=== PATIENT | female | born 1995 | race Caucasian/White ===

== ENCOUNTER 2021-09-24 12:28 | Emergency (ER) | payer OTHER, SELFPAY ==
--- NOTE | 2021-09-24 | ECG_ITS ---
Test Reason : cp Blood Pressure : / mmHG Vent. Rate : 091 BPM Atrial Rate : 091 BPM P-R Int : 118 ms QRS Dur : 086 ms QT Int : 336 ms P-R-T Axes : 067 080 044 degrees QTc Int : 413 ms Normal sinus rhythm Normal ECG No previous ECGs available Referred By: Generic ED Physician Electronically Signed By:JENNY LANE
--- NOTE | ~2021-09-24 | XR_ITS ---
EXAMINATION: XR CHEST CLINICAL INFORMATION: SOB, cough and weakness COMPARISON: None TECHNIQUE: 2 views of the chest were obtained. FINDINGS: No significant abnormality is noted involving the heart, lungs, mediastinum, bony thorax or soft tissues. XR/XR chest 2V IMPRESSION: Unremarkable chest examination.
[2021-09-24 12:33] VITALS: BP 107/67; PULSE 90; RESP 16; TEMP 37.3; O2SAT 98; BMI 21.6
[2021-09-24 13:11] LABS: COVID-19 Test Negative (Negative); IDNOW Serial# 16C4AD1C
== END 2021-09-24 19:00 | disposition left against medical advice (07) ==
PROVIDERS: Emergency Provider Emergency Medicine
DX: R06.02 Shortness of breath (principal); R07.9 Chest pain, unspecified; Z20.822 Contact with and (suspected) exposure to COVID-19
CPT/HCPCS: 71046; 87635; 93005; 99282; 99283

== ENCOUNTER 2023-01-15 11:44 | Emergency (ER) | payer OTHER, SELFPAY ==
--- NOTE | ~2023-01-15 | US_ITS ---
EXAMINATION: US OBSTETRICAL ULTRASOUND CLINICAL INFORMATION: Positive test, abdominal pain HCG 246 COMPARISON: None available. LMP: 12/11/2022. Gestational age by maternal dates is 5 weeks 0 days. Estimated date of delivery by maternal dates is 09/17/2023. TECHNIQUE: Transabdominal and transvaginal imaging were performed. FINDINGS: There is no intrauterine gestational sac. Based on the patient's hCG, it is too early to identify an intrauterine by ultrasound. The uterus measures 6.7 x 3.2 x 5.7 cm. There is a question whether the uterus is septate versus bicornuate. The endometrium measures 1.5 cm which is upper limits of normal. ADNEXA: The right ovary measures 2.9 x 1.7 x 1.4 cm. The right ovary is normal in appearance. The left ovary measures 3.2 x 1.9 x 2.3 cm. 1.4 x 1.3 x 1.6 cm complex cyst in the left ovary which may represent the corpus luteum. There is a small amount of free fluid within the cul-de-sac. US/US OB pelvic and transvaginal IMPRESSION: There is no evidence of an intrauterine . No adnexal mass is seen. Based on the patient's hCG, it is too early to identify an intrauterine by ultrasound.
[2023-01-15 12:23] VITALS: BP 106/63; PULSE 81; RESP 18; TEMP 37.2; O2SAT 99; BMI 21.3
--- NOTE | 2023-01-15 12:23 | ED.PREGNANCY ---
HPI - General Chief complaint: Abdominal Pain Stated complaint: sharp abd pain Related Data Allergies Allergy/AdvReac Type Severity Reaction Status Date / Time No Known Allergies Allergy Verified 09/24/21 12:32 [No Known Allergies*] [facility] Social History Social History Advance Directives: No Physical Exam Vital Signs: Vital Signs: Last Vital Signs Temp 98.9 F 01/15/23 12:23 Pulse 81 01/15/23 12:23 Resp 18 01/15/23 12:23 BP 106/63 01/15/23 12:23 Pulse Ox 99 01/15/23 12:23 O2 Del Method Room Air 01/15/23 12:23 BMI result Body Mass Index 21.3 Course Course Course Narrative: RME: 27yo F w/PMHx + test on Thursday c/o abdominal pain x3 days w/nausea, decreased PO intake, & clear vaginal d/c. LMP 12/11. Labs, UA, OB US ordered Full HPI, ROS and PE to be performed by primary ED provider. Medical Decision Making Lab Data 01/15/23 12:58 01/15/23 12:58 Labs: Lab Results 01/15/23 Range/Units 12:58 WBC 9.5 (4.8-10.8) X10*3/uL RBC 4.09 L (4.20-5.50) X10*6/uL Hgb 12.8 (12.0-16.0) g/dl Hct 37.6 (37.0-47.0) % MCV 91.9 (80.0-98.0) fL MCH 31.3 (27.0-33.0) pg MCHC 34.0 (31.0-35.0) g/dl RDW 12.3 (11.0-16.0) % Plt Count 259 (160-400) X10*3/uL MPV 10.1 (9.4-12.3) fL Immature Gran % (Auto) 0.1 (0.0-0.4) % Neut % (Auto) 73.5 H (45-73) % Lymph % (Auto) 19.9 L (20-40) % [place] % (Auto) 6.0 (2-11) % Eos % (Auto) 0.2 (0-4) % Baso % (Auto) 0.3 (0-2) % Lymph # (Auto) 1.9 (1.2-4.9) X10*3/uL [place] # (Auto) 0.6 (0.1-1.2) X10*3/uL Eos # (Auto) 0.0 (0.0-0.4) X10*3/uL Baso # (Auto) 0.0 (0.0-0.2) X10*3/uL Abs Immat Gran (auto) 0.01 (0.00-0.03) X10*3/uL Absolute Neuts (auto) 7.0 (2.0-8.3) x10*3/uL Absolute Nucleated RBC 0.000 (0.0-0.012) X10*3/uL Nucleated RBC % (auto) 0.0 (0.0-0.2) /100WBC Sodium 133 L (135-145) mmol/L Potassium 4.1 (3.3-5.1) mmol/L Chloride 103 (96-108) mmol/L Carbon Dioxide 20 L (22-29) mmol/L Anion Gap 14 (12-20) BUN 12 (9-16) mg/dL Creatinine 0.68 (0.5-1.4) mg/dL Estim Creat Clear Calc 101.8 Estimated GFR > 60 Random Glucose 74 (60-115) mg/dL Calcium 9.6 (8.4-10.2) mg/dL Magnesium 2.1 (1.6-2.6) mg/dL Total Bilirubin 1.3 H (0.0-1.0) mg/dL Direct Bilirubin 0.4 (0.0-0.5) mg/dL AST 36 H (5-31) U/L ALT 25 (0-31) U/L Alkaline Phosphatase 40 (39-117) U/L Total Protein 7.9 (6.5-8.0) g/dL Albumin 4.5 (3.5-5.0) g/dL Lipase 21 (8-78) U/L Beta HCG, Quant 246 mIU/mL Urine Color Yellow Urine Appearance Clear Urine pH 6.0 (5.0-9.0) Ur Specific [place] >= 1.030 H (1.005-1.025) Urine Protein Negative (Neg-Trace) mg/dL Urine Glucose (UA) Negative (Negative) mg/dL Urine Ketones 80 (Negative) mg/dL Urine Blood Negative (Negative) Urine Nitrite Negative (Negative) Ur Leukocyte Esterase Negative (Negative) Discharge Plan Discharge Clinical Impression: Abdominal pain Patient Disposition: Left W/O Completing Treatment Discharge Date/Time: 01/15/23 18:48
--- OUTSIDE RECORDS SUMMARY | 2023-01-15 12:59 | XMS_ITS | Continuity of Care Document ---
Author Name Unknown Organization [facility] ter Address [address] [place] [id number] Care Team Providers Care Vice President Of Manufacturing Name Role Phone Not on Staff, PCP Primary Care Physician Unavail able Encounter [facility] [place] Date(s): 08/16/19 - 08/16/[address] [id number]- [facility] Encounter Diagnosis Sunburn of first degree(Final) - 08/16/19 Sunburn of second degree(Final) - 08/16/19 Nausea and vomiting(Final) - 08/16/19 Discharge Disposition: A-D/C Home Attending Physician: Amanuel Villalpando MD Admitting Physician: Amanuel Villalpando MD Referring Physician: Not on Staff, Referring MD Allergies, Adverse Reactions, Alerts No Known Medication Allergies Medications ondansetron 4 mg oral tablet, disintegrating 1 tablet = 4 mg, By Mouth, Every 6 hours, PRN as needed for nausea/vomiting, # 12 tablet, 0 Refills, Maintenance, 08/16/19 22:23:00 EDT, DIS Tablet Start Date: 08/16/19 Stop Date: 08/19/19 Status: Ordered Vital Signs Most recent to oldest [Reference Range]: 1 Oxygen Saturation [94-100 %] 98 % (08/16/19 9:34 PM) Pulse Rate [55-90 bpm] 88 bpm (08/16/19 9:34 PM) Blood Pressure [90-138/55-84 mm Hg] 104/ 68mm Hg (08/16/19 9:34 PM) Respiratory Rate [16-30 br/min] 20 br/mi n (08/16/19 9:34 PM) Temperature [96.8-100.4 DegF] 98.2 DegF (08/16/19 9:34 PM) Mode of Delivery (Oxygen) Room air (08/16/19 9:34 PM) Blood pressure sites Arm, right (08/16/19 9:34 PM) Temperature Route Oral (08/16/19 9:34 PM)
[2023-01-15 13:04] LABS: MANUAL DIFF FLAG NO
[2023-01-15 13:05] LABS: Basophils Percent Auto 0.3 % (0-2); Eosinophils Percent Auto 0.2 % (0-4); Hematocrit 37.6 % (37.0-47.0); Hemoglobin 12.8 g/dl (12.0-16.0); Imm Gran Abs Auto 0.01 X10*3/uL (0.00-0.03); Imm Gran Pct Auto 0.1 % (0.0-0.4); Lymphocytes Absolute Auto 1.9 X10*3/uL (1.2-4.9); Lymphocytes Percent Auto 19.9 % (20-40); Mean Corpuscular Hemoglobin 31.3 pg (27.0-33.0); Mean Corpuscular Volume 91.9 fL (80.0-98.0); Mean Platelet Volume 10.1 fL (9.4-12.3); Monocytes Absolute Auto 0.6 X10*3/uL (0.1-1.2); Neutrophils Percent Auto 73.5 % (45-73); Platelet Count 259 X10*3/uL (160-400); Red Blood Count 4.09 X10*6/uL (4.20-5.50); Red Cell Distribution Width 12.3 % (11.0-16.0); White Blood Count 9.5 X10*3/uL (4.8-10.8)
[2023-01-15 13:06] LABS: Appearance Urine Clear; Color Urine Yellow; Glucose Urine UA Negative (Negative); Leukocyte Esterase Urine Negative (Negative); Nitrite Urine Negative (Negative); Specific Gravity - Urine >= 1.030 (1.005-1.025); Urine Blood Negative (Negative); Urine Ketones 80 mg/dL (Negative); Urine Protein Negative (Neg-Trace)
[2023-01-15 13:24] LABS: Alanine Aminotransferase 25 U/L (0-31); Albumin Level 4.5 g/dL (3.5-5.0); Alkaline Phosphatase 40 U/L (39-117); Anion Gap 14 (12-20); Aspartate Amino Transferase 36 U/L (5-31); Bilirubin Direct 0.4 mg/dL (0.0-0.5); Bilirubin Total 1.3 mg/dL (0.0-1.0); Blood Urea Nitrogen 12 mg/dL (9-16); Calcium 9.6 mg/dL (8.4-10.2); Carbon Dioxide 20 mmol/L (22-29); Chloride 103 mmol/L (96-108); Creatinine Clr Calc Pharmacy 101.8; Estimated Glomerular Filt Rate > 60; Glucose Random 74 mg/dL (60-115); HCG Quantitative 246 mIU/mL; Lipase 21 U/L (8-78); Magnesium 2.1 mg/dL (1.6-2.6); Potassium 4.1 mmol/L (3.3-5.1); Sodium 133 mmol/L (135-145); Total Protein 7.9 g/dL (6.5-8.0)
--- NOTE | 2023-01-15 17:34 | PC.NURSE ---
NO ANSWER AT [id number]
== END 2023-01-15 18:48 | disposition left against medical advice (07) ==
PROVIDERS: Physician Assistant; Emergency Provider Emergency Medicine
DX: O26.891 Other specified pregnancy related conditions, first trimester (principal); R10.9 Unspecified abdominal pain; Z3A.01 Less than 8 weeks gestation of pregnancy
CPT/HCPCS: 36415; 76801; 76817; 80048; 80076; 81003; 83690; 83735; 84702; 85025; 99282; 99284